=== PATIENT | female | born 2000 | race Caucasian/White ===

== ENCOUNTER 2018-09-21 02:55 | Emergency (ER) | payer SELFPAY ==
[~2018-09-21] VITALS: Ht 182.9 cm; Wt 110.0 kg
[2018-09-21 02:56] VITALS: BP 121/77
[2018-09-21] MEDS ORDERED: TOBRADEX OPHTH SUSP 2.5 ML OS ONE (03:45)
== END 2018-09-21 04:07 | disposition home or self-care (01) ==
LOC: M ED 02:55
DX: H11.422 Conjunctival edema, left eye (principal)